=== PATIENT | male | born 1955 | race Caucasian/White ===

== ENCOUNTER 2019-10-04 15:45 | Emergency (ER) | payer MEDICAID ==
[~2019-10-04] VITALS: Ht 185.4 cm; Wt 105.2 kg
[2019-10-04 15:54] VITALS: BP 149/91; Ht 185.4 cm; Wt 105.2 kg
== END 2019-10-04 16:33 | disposition home or self-care (01) ==
LOC: ED 15:45
DX: E78.5 Hyperlipidemia, unspecified (principal); E03.9 Hypothyroidism, unspecified; F32.9 Major depressive disorder, single episode, unspecified; Z76.0 Encounter for issue of repeat prescription

== ENCOUNTER 2019-11-28 13:59 | Emergency (ER) | payer MEDICAID ==
[~2019-11-28] VITALS: Ht 185.4 cm; Wt 106.6 kg
[2019-11-28 14:06] VITALS: BP 141/76; Ht 185.4 cm; Wt 106.6 kg
== END 2019-11-28 14:58 | disposition home or self-care (01) ==
LOC: ED 13:59
DX: Z76.0 Encounter for issue of repeat prescription (principal); I10 Essential (primary) hypertension; E78.00 Pure hypercholesterolemia, unspecified